=== PATIENT | female | born 1960 | race Caucasian/White ===

== ENCOUNTER 2017-01-18 16:03 | Emergency (ER) | payer MEDICARE, OTHER ==
[2017-01-18 17:59] LABS: HEMOGLOBIN 11.7 gm/dl (12.3-15.3); RED BLOOD COUNT 4.09 M/UL (4.00-5.10); WHITE BLOOD COUNT 7.1 K/UL (4.5-11.0)
== END 2017-01-19 01:00 | disposition home or self-care (01) ==
LOC: ER1 16:03
PROVIDERS: Emergency Medicine
DX: S92.411A Displaced fracture of proximal phalanx of right great toe, initial encounter for closed fracture (principal); E11.65 Type 2 diabetes mellitus with hyperglycemia; E87.5 Hyperkalemia; I10 Essential (primary) hypertension; G40.909 Epilepsy, unspecified, not intractable, without status epilepticus; W19.XXXA Unspecified fall, initial encounter; Z79.4 Long term (current) use of insulin; Z79.891 Long term (current) use of opiate analgesic; Z79.899 Other long term (current) drug therapy
CPT/HCPCS: 36415; 70450; 73630; 80053; 81001; 82962; 84132; 84484; 85025; 85379; 85610; 85730; 87086; 93005; 93970; 94640; 94664; 96372; 99284; J1650; J1815; J7050; Q9963

== ENCOUNTER 2017-03-11 16:23 | Emergency (ER) | payer MEDICARE, OTHER ==
[2017-03-11 17:49] LABS: HEMOGLOBIN 12.8 gm/dl (12.3-15.3); RED BLOOD COUNT 4.48 M/UL (4.00-5.10); WHITE BLOOD COUNT 5.4 K/UL (4.5-11.0)
[2017-08-26] MEDS ORDERED: NORVASC 5 MG TAB5 MG PO (19:20)
[2017-08-26] MEDS ORDERED: ASPIRIN81 MG PO (19:21)
[2017-08-26] MEDS ORDERED: HYDROCHLOROTHIA25 MG PO (19:22)
[2017-08-26] MEDS ORDERED: CORTEF 10MG TAB10 MG PO (19:22)
[2017-08-26] MEDS ORDERED: CORTEF5 MG PO (19:23)
[2017-08-26] MEDS ORDERED: METOPROLOL TART50 MG PO (19:23)
== END 2017-03-11 21:50 | disposition home or self-care (01) ==
LOC: ER1 16:23
PROVIDERS: Emergency Medicine; Specialist/Technologist Athletic Trainer
DX: E11.65 Type 2 diabetes mellitus with hyperglycemia (principal); E87.5 Hyperkalemia
CPT/HCPCS: 36415; 80048; 80053; 82962; 85025; 93005; 96361; 96374; 99285; J1815; J7030

== ENCOUNTER 2017-03-13 13:28 | Emergency (ER) | payer MEDICARE, OTHER ==
[2017-03-13 17:27] LABS: HEMOGLOBIN 13.2 gm/dl (12.3-15.3); RED BLOOD COUNT 4.62 M/UL (4.00-5.10); WHITE BLOOD COUNT 6.3 K/UL (4.5-11.0)
[2017-08-26] MEDS ORDERED: NORVASC 5 MG TAB5 MG PO (19:20)
[2017-08-26] MEDS ORDERED: ASPIRIN81 MG PO (19:21)
[2017-08-26] MEDS ORDERED: CORTEF 10MG TAB10 MG PO (19:22)
[2017-08-26] MEDS ORDERED: HYDROCHLOROTHIA25 MG PO (19:22)
[2017-08-26] MEDS ORDERED: METOPROLOL TART50 MG PO (19:23)
[2017-08-26] MEDS ORDERED: CORTEF5 MG PO (19:23)
== END 2017-03-13 19:10 | disposition home or self-care (01) ==
LOC: ER1 13:28
PROVIDERS: Family Medicine
DX: E11.65 Type 2 diabetes mellitus with hyperglycemia (principal); I10 Essential (primary) hypertension; G40.909 Epilepsy, unspecified, not intractable, without status epilepticus; Z79.4 Long term (current) use of insulin; Z79.899 Other long term (current) drug therapy
CPT/HCPCS: 36415; 80053; 82962; 83735; 85025; 99283

== ENCOUNTER 2017-03-21 14:19 | Inpatient (IN) | payer MEDICARE, OTHER ==
[~2017-03-21] VITALS: Ht 160 cm; Wt 88.0 kg
[2017-03-21 17:50] LABS: HEMOGLOBIN 13.2 gm/dl (12.3-15.3); RED BLOOD COUNT 4.61 M/UL (4.00-5.10); WHITE BLOOD COUNT 5.6 K/UL (4.5-11.0)
[2017-03-21] MEDS ORDERED: KEPPRA500 MG PO (22:40)
[2017-03-21] MEDS ORDERED: KEPPRA 500 MG500 MG PO ×2 (22:40→23:38)
[2017-03-21] MEDS ORDERED: PROPRANOLOL HCL10 MG PO (22:41)
[2017-03-21] MEDS ORDERED: GABAPENTIN600 MG PO (22:41)
[2017-03-21] MEDS ORDERED: VITAMIN D2400 UNIT PO (22:42)
[2017-03-21] MEDS ORDERED: DIVALPROEX SOD500 MG PO (23:38)
[2017-03-22 05:46] LABS: HEMOGLOBIN 12.2 gm/dl (12.3-15.3); RED BLOOD COUNT 4.34 M/UL (4.00-5.10); WHITE BLOOD COUNT 5.8 K/UL (4.5-11.0)
--- NOTE | 2017-03-22 08:38 | NUR ---
[address] CR[address] BOLAÑOS POTASSIUM 6.1, ORDER FOR KAYEXALATE 45 GRAMS RECEIVED. VERIFIED DOSAGE WITH PHARMACY NEO BEFORE GIVING TO PT.
--- NOTE | 2017-03-22 11:45 | NUR ---
1145 PT MORE LETHARGIC BUT RESPONDS TO VERBAL COMMANDS. RECHECKED BLLOD SUGAR 279. NOTIFIED DR RICHARDS PT LETHARGIC AND REQUESTED AN ABG. DR RICHARDS GAVE THE ORDER FOR ABG AND SAID TO CHECK WITH HS ABOUT MOVING PT TO PCU OR ICU. [facility]E SEWER NOTIFIED. NO BEDS CURRENTLY AVAILABLE.
[2017-03-23 04:50] LABS: HEMOGLOBIN 11.8 gm/dl (12.3-15.3); RED BLOOD COUNT 4.16 M/UL (4.00-5.10); WHITE BLOOD COUNT 5.2 K/UL (4.5-11.0)
[2017-03-24] MEDS ORDERED: LEVEMIR100 UNIT/1 SC (17:12)
[2017-03-24] MEDS ORDERED: NOVOLOG 10100 UNITS2 SUBCON (17:13)
[2017-08-26] MEDS ORDERED: NORVASC 5 MG TAB5 MG PO (19:20)
[2017-08-26] MEDS ORDERED: ASPIRIN81 MG PO (19:21)
[2017-08-26] MEDS ORDERED: HYDROCHLOROTHIA25 MG PO (19:22)
[2017-08-26] MEDS ORDERED: CORTEF 10MG TAB10 MG PO (19:22)
[2017-08-26] MEDS ORDERED: CORTEF5 MG PO (19:23)
[2017-08-26] MEDS ORDERED: METOPROLOL TART50 MG PO (19:23)
== END 2017-03-24 18:10 | disposition home or self-care (01) | DRG 638 ==
LOC: ER1 14:19 → ZEROF 20:20 → M/S 21:41 → PROG CARE 03-22 14:31 → MED SURG 4 03-23 14:21
PROVIDERS: Internal Medicine; Physician Assistant Medical; ADMIT Hospitalist
DX: E11.65 Type 2 diabetes mellitus with hyperglycemia (principal); E87.4 Mixed disorder of acid-base balance; R27.0 Ataxia, unspecified; E11.40 Type 2 diabetes mellitus with diabetic neuropathy, unspecified; Z79.84 Long term (current) use of oral hypoglycemic drugs; E86.0 Dehydration; E87.5 Hyperkalemia; G40.909 Epilepsy, unspecified, not intractable, without status epilepticus; I10 Essential (primary) hypertension; Z79.899 Other long term (current) drug therapy
CPT/HCPCS: ECHO; 36415; 36600; 70450; 70551; 71010; 76700; 80048; 80053; 80299; 80307; 81001; 82009; 82043; 82088; 82140; 82150; 82390; 82436; 82550; 82553; 82570; 82607; 82728; 82746; 82800; 82803; 82962; 83036; 83540; 83605; 83690; 83735; 83874; 83935; 84100; 84133; 84244; 84300; 84436; 84443; 84480; 84484; 85025; 85027; 85379; 86039; 86803; 87086; 87390; 93005; 93306; 93880; 94664; 96374; 97116; 99285; G0378; J1650; J1815; J3475; J7030

== ENCOUNTER 2017-04-21 12:24 | Observation (INO) | payer MEDICARE, OTHER ==
[~2017-04-21] VITALS: Ht 160 cm; Wt 77.1 kg
[~2017-04-21 12:24] MED LIST: DIVALPROEX SOD500 MG PO; GABAPENTIN600 MG PO; KEPPRA 500 MG500 MG PO; KEPPRA500 MG PO; LEVEMIR100 UNIT/1 SC; NOVOLOG 10100 UNITS2 SUBCON; PROPRANOLOL HCL10 MG PO; VITAMIN D2400 UNIT PO
[2017-04-21 13:26] LABS: HEMOGLOBIN 13.3 gm/dl (12.3-15.3); RED BLOOD COUNT 4.7 M/UL (4.00-5.10); WHITE BLOOD COUNT 6.6 K/UL (4.5-11.0)
[2017-04-21 13:46] LABS: BUN/CREATININE RATIO 30 (0-10)
[2017-04-22 04:59] LABS: HEMOGLOBIN 11.2 gm/dl (12.3-15.3); RED BLOOD COUNT 4.05 M/UL (4.00-5.10)
[2017-04-23 06:41] LABS: RED BLOOD COUNT 4.26 M/UL (4.00-5.10); WHITE BLOOD COUNT 6.5 K/UL (4.5-11.0)
[2017-04-23 07:09] LABS: BUN/CREATININE RATIO 29 (0-10)
[2017-04-23 13:07] LABS: BUN/CREATININE RATIO 31 (0-10)
[2017-04-24] MEDS ORDERED: CORTEF5 MG PO (11:56)
[2017-08-26] MEDS ORDERED: NORVASC 5 MG TAB5 MG PO (19:20)
[2017-08-26] MEDS ORDERED: ASPIRIN81 MG PO (19:21)
[2017-08-26] MEDS ORDERED: CORTEF 10MG TAB10 MG PO (19:22)
[2017-08-26] MEDS ORDERED: HYDROCHLOROTHIA25 MG PO (19:22)
[2017-08-26] MEDS ORDERED: METOPROLOL TART50 MG PO (19:23)
[2017-08-26] MEDS ORDERED: CORTEF5 MG PO (19:23)
== END 2017-04-24 10:50 | disposition home or self-care (01) ==
LOC: ER1 12:24 → MED SURG 4 16:45 → ZEROF 16:45 → MED SURG 4 18:23
PROVIDERS: Emergency Medicine; Physician Assistant; ADMIT Internal Medicine
DX: E11.649 Type 2 diabetes mellitus with hypoglycemia without coma (principal); I10 Essential (primary) hypertension; G40.909 Epilepsy, unspecified, not intractable, without status epilepticus; E27.40 Unspecified adrenocortical insufficiency; E87.5 Hyperkalemia; D69.6 Thrombocytopenia, unspecified; Z79.899 Other long term (current) drug therapy
CPT/HCPCS: 36415; 71010; 80048; 80053; 80299; 81001; 82024; 82533; 82550; 82553; 82962; 83036; 83735; 83874; 84484; 85025; 93005; 94664; 96374; 99285; G0378; J0834; J1720

== ENCOUNTER → 2017-07-31 | Outpatient (CLI) | payer MEDICARE, OTHER ==
[~2017-07-31] MED LIST changes: +CORTEF5 MG PO
== END ==
LOC: RAD 15:37
DX: K59.09 Other constipation (principal)
CPT/HCPCS: 73700; 74000

== ENCOUNTER → 2017-07-31 | Outpatient (CLI) | payer MEDICARE, OTHER | LOC: KOH-I 13:30 | DX: M84.371A Stress fracture, right ankle, initial encounter for fracture (principal) | CPT/HCPCS: 73700 ==

== ENCOUNTER 2021-09-24 10:26 | Observation (INO) | payer MEDICARE, OTHER ==
[~2021-09-24] VITALS: Ht 160 cm; Wt 93.9 kg
[~2021-09-24 10:26] MED LIST changes: +ASPIRIN81 MG PO; +BACTRIM DS TAB1 EACH PO; +CEFUROXIME250 MG PO; +CORTEF 10MG TAB10 MG PO; +DEPAKOTE250 MG PO; +DEPAKOTE500 MG PO; -DIVALPROEX SOD500 MG PO; +ECOTRIN81 MG PO; -GABAPENTIN600 MG PO; +HYDROCHLOROTHIA25 MG PO; +KEPPRA1000 MG PO; +LEVEMIR FL100 UNIT/1 SQ; -LEVEMIR100 UNIT/1 SC; +METOPROLOL TART50 MG PO; +NEURONTIN100 MG PO; +NORVASC 5 MG TAB5 MG PO; +NORVASC10 MG PO; +NOVOLOG100 UNIT/1 SQ
[2021-09-24 11:39] LABS: HEMOGLOBIN 10.6 gm/dl (12.3-15.3); RED BLOOD COUNT 4.27 M/UL (4.00-5.10); WHITE BLOOD COUNT 8.4 K/UL (4.5-11.0)
[2021-09-24] MEDS ORDERED: LACTULOSE10 GM/15 M PO (14:03)
[2021-09-24] MEDS ORDERED: HUMALOG100 UNIT/3 SQ (14:04)
[2021-09-24] MEDS ORDERED: PROTONIX 40 MG40 M1 PO (14:04)
[2021-09-24] MEDS ORDERED: HYDRALAZINE HCL50 MG PO (14:05)
[2021-09-24] MEDS ORDERED: FLUDROCORTISON0.1 MG PO (14:05)
[2021-09-24] MEDS ORDERED: DULOXETINE HCL60 MG PO (14:06)
[2021-09-24] MEDS ORDERED: VITAMIN D21250 MCG PO (14:06)
[2021-09-24] MEDS ORDERED: COLESEVELAM H3.75 GM PO (14:07)
[2021-09-24] MEDS ORDERED: VOLTAREN ARTHRI20 GM TP (14:07)
[2021-09-24] MEDS ORDERED: CALCIUM CARBON600 M1 PO (14:08)
[2021-09-24] MEDS ORDERED: ATORVASTATIN CA40 MG PO (14:08)
[2021-09-24] MEDS ORDERED: CARVEDILOL25 MG PO (14:08)
[2021-09-24] MEDS ORDERED: PRIMIDONE50 MG PO (14:09)
[2021-09-24] MEDS ORDERED: NIFEDIPINE ER90 MG PO (14:09)
[2021-09-24] MEDS ORDERED: ASPIRIN81 MG PO (14:12)
[2021-09-24] MEDS ORDERED: OXYCODONE-ACET1 EACH PO (14:14)
[2021-09-25 06:59] LABS: HEMOGLOBIN 9.7 gm/dl (12.3-15.3); RED BLOOD COUNT 3.92 M/UL (4.00-5.10); WHITE BLOOD COUNT 7.6 K/UL (4.5-11.0)
[2021-09-26] MEDS ORDERED: LEVEMIR FL100 UNIT/1 SQ (14:48)
[2021-09-26] MEDS ORDERED: GLUCOPHAGE 850850 MG PO (14:48)
== END 2021-09-26 16:02 | disposition home or self-care (01) ==
LOC: ER1 10:26 → MED SURG 4 12:30 → CDU 12:30 → MED SURG 4 17:31
PROVIDERS: Physician Assistant; ADMIT Internal Medicine Infectious Disease
DX: E11.65 Type 2 diabetes mellitus with hyperglycemia (principal); N17.9 Acute kidney failure, unspecified; I12.9 Hypertensive chronic kidney disease with stage 1 through stage 4 chronic kidney disease, or unspecified chronic kidney disease; E11.22 Type 2 diabetes mellitus with diabetic chronic kidney disease; N18.30 Chronic kidney disease, stage 3 unspecified; D63.1 Anemia in chronic kidney disease; G40.909 Epilepsy, unspecified, not intractable, without status epilepticus; E27.40 Unspecified adrenocortical insufficiency; J45.909 Unspecified asthma, uncomplicated; G89.29 Other chronic pain; E78.5 Hyperlipidemia, unspecified; Z90.49 Acquired absence of other specified parts of digestive tract; Z98.890 Other specified postprocedural states; Z98.51 Tubal ligation status; Z79.4 Long term (current) use of insulin; Z79.82 Long term (current) use of aspirin; Z79.52 Long term (current) use of systemic steroids; Z79.891 Long term (current) use of opiate analgesic; Z79.1 Long term (current) use of non-steroidal anti-inflammatories (NSAID); Z79.899 Other long term (current) drug therapy; Z20.822 Contact with and (suspected) exposure to COVID-19
CPT/HCPCS: 36415; 80048; 80053; 81001; 82009; 82962; 83036; 85025; 96374; 96375; 96376; 99285; G0378; J0696; J2405; U0002

== ENCOUNTER → 2022-03-07 | Outpatient (CLI) | payer MEDICARE, OTHER ==
[~2022-03-07] MED LIST changes: +ATORVASTATIN CA40 MG PO; +CALCIUM CARBON600 M1 PO; +CARVEDILOL25 MG PO; +COLESEVELAM H3.75 GM PO; +DULOXETINE HCL60 MG PO; +FLUDROCORTISON0.1 MG PO; +GLUCOPHAGE 850850 MG PO; +HUMALOG100 UNIT/3 SQ; +HYDRALAZINE HCL50 MG PO; +LACTULOSE10 GM/15 M PO; +LEVETIRACETAM250 MG PO; +NIFEDIPINE ER90 MG PO; +OXYCODONE-ACET1 EACH PO; +PRIMIDONE50 MG PO; +PROTONIX 40 MG40 M1 PO; +VITAMIN D21250 MCG PO; +VOLTAREN ARTHRI20 GM TP
== END ==
LOC: CT 12:48
DX: D37.2 Neoplasm of uncertain behavior of small intestine (principal); D64.9 Anemia, unspecified
CPT/HCPCS: 36415; 82565; 84520; Q9967

== ENCOUNTER 2022-03-13 15:11 | Emergency (ER) | payer MEDICARE, OTHER ==
[2022-03-13 16:59] LABS: HEMOGLOBIN 10.2 gm/dl (12.3-15.3); RED BLOOD COUNT 4.28 M/UL (4.00-5.10); WHITE BLOOD COUNT 10.3 K/UL (4.5-11.0)
== END 2022-03-13 18:50 | disposition home or self-care (01) ==
LOC: ER1 15:11
PROVIDERS: Family Medicine
DX: M25.551 Pain in right hip (principal); E11.649 Type 2 diabetes mellitus with hypoglycemia without coma; N28.9 Disorder of kidney and ureter, unspecified; I10 Essential (primary) hypertension; G89.29 Other chronic pain; Z79.4 Long term (current) use of insulin
CPT/HCPCS: 73502; 80048; 81001; 85025; 93005; 99285; J0360

== ENCOUNTER 2022-04-07 00:17 | Emergency (ER) | payer MEDICARE, OTHER ==
[2022-04-07 03:20] LABS: HEMOGLOBIN 11.6 gm/dl (12.3-15.3); RED BLOOD COUNT 4.57 M/UL (4.00-5.10); WHITE BLOOD COUNT 6.1 K/UL (4.5-11.0)
== END 2022-04-07 10:18 | disposition home or self-care (01) ==
LOC: ER1 00:17
PROVIDERS: Physician Assistant
DX: E11.65 Type 2 diabetes mellitus with hyperglycemia (principal); M25.551 Pain in right hip; E11.22 Type 2 diabetes mellitus with diabetic chronic kidney disease; I12.9 Hypertensive chronic kidney disease with stage 1 through stage 4 chronic kidney disease, or unspecified chronic kidney disease; N18.9 Chronic kidney disease, unspecified; Z79.4 Long term (current) use of insulin; Z85.038 Personal history of other malignant neoplasm of large intestine
CPT/HCPCS: 36600; 73502; 80053; 82009; 82800; 82962; 83605; 83735; 85025; 85652; 86140; 96361; 96374; 96375; 96376; 99285; J1885

== ENCOUNTER 2022-04-10 14:39 | Emergency (ER) | payer MEDICARE, OTHER ==
[2022-04-10 15:42] LABS: HEMOGLOBIN 11.3 gm/dl (12.3-15.3); RED BLOOD COUNT 4.41 M/UL (4.00-5.10); WHITE BLOOD COUNT 7.9 K/UL (4.5-11.0)
[2022-04-10 16:13] LABS: BUN/CREATININE RATIO 25 (0-10)
== END 2022-04-10 23:31 | disposition home or self-care (01) ==
LOC: ER1 14:39
PROVIDERS: Physician Assistant
DX: E11.65 Type 2 diabetes mellitus with hyperglycemia (principal); E11.22 Type 2 diabetes mellitus with diabetic chronic kidney disease; J45.909 Unspecified asthma, uncomplicated; E87.6 Hypokalemia; R79.9 Abnormal finding of blood chemistry, unspecified; C17.9 Malignant neoplasm of small intestine, unspecified; Z88.8 Allergy status to other drugs, medicaments and biological substances; Z79.899 Other long term (current) drug therapy
CPT/HCPCS: 71045; 80048; 80053; 81001; 82550; 82553; 82962; 83735; 84132; 84484; 85025; 87086; 94640; 94664; 94760; 96374; 99284; J0696; J7030

== ENCOUNTER → 2022-07-03 | Outpatient (CLI) | payer MEDICARE, OTHER ==
[~2022-07-03] MED LIST changes: +CLONIDINE HCL0.1 MG PO; +CREON DR 36,001 EACH PO; +LEVETIRACETAM1000 MG PO; -LEVETIRACETAM250 MG PO; +NIFEDIPINE ER60 MG PO; -NIFEDIPINE ER90 MG PO; +NITROFURANTOIN100 MG PO; +TYLENOL 8 HOUR650 MG PO
== END ==
LOC: OPSV 08:00
DX: N28.9 Disorder of kidney and ureter, unspecified (principal); E86.0 Dehydration
CPT/HCPCS: 96360; 96361

== ENCOUNTER → 2022-07-10 | Outpatient (CLI) | payer MEDICARE, OTHER | LOC: OPSV 08:00 | DX: N28.9 Disorder of kidney and ureter, unspecified (principal); E86.0 Dehydration | CPT/HCPCS: 96360; 96361 ==